=== PATIENT | female | born 1970 ===

== ENCOUNTER 2021-12-20 12:29 | Emergency (ER) | payer BC, OTHER ==
[~2021-12-20] VITALS: Ht 165.1 cm; Wt 104.3 kg
[2021-12-20 13:56] VITALS: BP 119/91
[2021-12-20] MEDS ORDERED: cefTRIAXone SOD 1,000 MG VL IM ONE (14:30)
[2021-12-20] MEDS ORDERED: KETOROLAC TROMETH 60MG/2ML VIAL IM ONE (14:30)
[2021-12-20] MEDS ORDERED: CEPH500T PO (14:31)
[2021-12-20] MEDS ORDERED: IBUP800T27 PO (14:31)
[2021-12-20] MEDS ORDERED: GABA300C PO (15:38)
== END 2021-12-20 16:58 | disposition home or self-care (01) ==
LOC: EDBD 12:29 → ER 12:29
DX: L03.115 Cellulitis of right lower limb (principal); E11.9 Type 2 diabetes mellitus without complications
CPT/HCPCS: 93971; 96372; 99284; J0696; J1885

== ENCOUNTER 2021-12-23 13:33 | Inpatient (IN) | payer BC ==
[~2021-12-23] VITALS: Ht 165.1 cm; Wt 145.8 kg
[~2021-12-23 13:33] MED LIST: CEPH500T PO; GABA300C PO; IBUP800T27 PO
[2021-12-23 16:04] LABS: Basophils # (auto) 0.1 10 ^3/uL (0-0.2); Hematocrit 35.3 % (36.0-46.0); Monocytes # (auto) 1.2 10 ^3/uL (0-1.3); Red Cell Distribution Width 14.7 % (11.8-14.3); White Blood Cell 15.5 10^3/uL (4.4-10.8)
[2021-12-23 16:05] LABS: Basophils % (auto) 0.5 % (0.0-2.0); Eosinophils # (auto) 0.2 10 ^3/uL (0-0.8); Hemoglobin 11.8 g/dL (12.2-16.2); Lymphocytes # (auto) 2.8 10 ^3/uL (0.4-5.4); Lymphocytes % (auto) 18.1 % (10.0-50.0); Mean Corpuscular Hemoglobin 27.7 pg (28.0-32.0); Mean Corpuscular Hgb Conc. 33.4 g/dL (32.0-36.0); Mean Corpuscular Volume 82.9 fL (80.0-100.0); Monocytes % (auto) 7.9 % (0.0-12.0); Neutrophils # (auto) 11.3 10 ^3/uL (1.6-8.6); Neutrophils % (auto) 72.5 % (37.0-80.0); Red Blood Cells 4.26 10^6/uL (4.0-5.20)
[2021-12-23 16:21] LABS: Albumin 2.6 g/dL (3.4-5.0); Calcium 8.8 mg/dL (8.5-10.1); Potassium 3.3 mmol/L (3.5-5.1)
[2021-12-23 16:29] LABS: BUN/Creatinine Ratio 11.7; CRP High Sensitivity 16.6 mg/dL (< 0.3); Total Protein 8.5 g/dL (6.4-8.2)
[2021-12-23 16:38] LABS: Bilirubin, Total 0.3 mg/dL (0.2-1.0)
[2021-12-23] MEDS ORDERED: POTASSIUM EFFERVESENT TAB 25 MEQ PO ONE (17:30)
[2021-12-23] MEDS ORDERED: ACETAMINOPHEN 325 MG TAB PO ONE (18:15)
[2021-12-23] MEDS ORDERED: PIPERACILLIN-TAZOB 3.375GM 100 ML IV ONE (18:15)
[2021-12-23] MEDS ORDERED: LACTATED RINGER'S 1,000 ML IV ONE (18:15)
[2021-12-23] MEDS ORDERED: VANCOMYCIN 1GM/250ML 250 ML IV ONE (18:15)
[2021-12-23] MEDS ORDERED: DEXTROSE (50%) 50ML SYRG IV PRN (22:45)
[2021-12-23] MEDS ORDERED: VANCOMYCIN PER PHARMACY 0 MG IV SCH (22:45)
[2021-12-23] MEDS ORDERED: DOCUSATE SOD 100 MG CAP PO PRN (22:45)
[2021-12-23] MEDS ORDERED: ONDANSETRON HCL 4 MG/2 ML VIAL IV PRN (22:45)
[2021-12-23] MEDS ORDERED: MORPHINE SULFATE 4 MG/ML SYR/VIAL IV PRN (22:45)
[2021-12-23] MEDS ORDERED: ACETAMINOPHEN 325 MG TAB PO PRN (22:45)
[2021-12-23] MEDS: SODIUM CHLORIDE 0.9% 1,000 ML IV SCH (23:00)
[2021-12-23] MEDS ORDERED: NITROGLYCERIN 0.4 MG SL TAB SL PRN (23:15)
[2021-12-23] MEDS ORDERED: MORPHINE SULFATE INJECTION 2 MG/ML SYRG IV PRN (23:15)
[2021-12-24] MEDS: HYDROcodone-ACET 5/325MG TAB PO PRN ×2 (01:45→21:40)
[2021-12-24] MEDS: PIPERACILLIN-TAZOB 3.375GM 100 ML IV SCH ×3 (06:00→22:30)
[2021-12-24] MEDS: ACCU-CHEK COMFORT CURVE STRIP VI SCH ×4 (06:45→22:06)
[2021-12-24] MEDS: InsuLIN REG 1unit/0.01ml Soln (100units/ml) SC SCH ×4 (06:45→22:12)
[2021-12-24 07:00] LABS: Basophils # (auto) 0.1 10 ^3/uL (0-0.2); Basophils % (auto) 0.6 % (0.0-2.0); Eosinophils # (auto) 0.3 10 ^3/uL (0-0.8); Eosinophils % (auto) 2.4 % (0.0-7.0); Hemoglobin 10.5 g/dL (12.2-16.2); Lymphocytes # (auto) 2.4 10 ^3/uL (0.4-5.4); Mean Corpuscular Hemoglobin 27.3 pg (28.0-32.0); Mean Corpuscular Hgb Conc. 32.9 g/dL (32.0-36.0); Mean Corpuscular Volume 83.2 fL (80.0-100.0); Monocytes # (auto) 1.3 10 ^3/uL (0-1.3); Monocytes % (auto) 10.9 % (0.0-12.0); Neutrophils # (auto) 7.6 10 ^3/uL (1.6-8.6); Neutrophils % (auto) 65.1 % (37.0-80.0); Red Blood Cells 3.85 10^6/uL (4.0-5.20); Red Cell Distribution Width 14.8 % (11.8-14.3); White Blood Cell 11.7 10^3/uL (4.4-10.8)
[2021-12-24 07:12] LABS: Potassium 3.5 mmol/L (3.5-5.1)
[2021-12-24 07:19] LABS: Albumin 2.2 g/dL (3.4-5.0); BUN/Creatinine Ratio 14.3; Bilirubin, Total 0.2 mg/dL (0.2-1.0); Calcium 8.3 mg/dL (8.5-10.1); Total Protein 7.3 g/dL (6.4-8.2)
[2021-12-24] MEDS: VANCOMYCIN 1GM/250ML 250 ML IV SCH ×2 (10:04→21:00)
[2021-12-24] MEDS: MULTIPLE VITAMIN TAB PO SCH (10:04)
[2021-12-24] MEDS: ZINC SULFATE 220mg CAP or TAB PO SCH (10:04)
[2021-12-24] MEDS: FAMOTIDINE (10MG/ML) 2ML VL IV SCH (10:04)
[2021-12-24] MEDS: ENOXAPARIN SOD 40 MG/0.4 ML SYRINGE SC SCH (10:05)
[2021-12-24] MEDS: ASCORBIC ACID 500 MG TAB PO SCH ×2 (10:05→22:12)
[2021-12-24 13:00] VITALS: BP 143/83
[2021-12-24] MEDS: SODIUM CHLORIDE 0.9% 1,000 ML IV SCH (15:17)
[2021-12-24 17:00] VITALS: BP 159/86
[2021-12-24 20:00] VITALS: BP 128/75
[2021-12-24 22:00] VITALS: BP 128/75
[2021-12-25 05:00] VITALS: BP 132/56
[2021-12-25] MEDS: PIPERACILLIN-TAZOB 3.375GM 100 ML IV SCH ×3 (06:36→21:57)
[2021-12-25] MEDS: ACCU-CHEK COMFORT CURVE STRIP VI SCH ×4 (06:38→21:58)
[2021-12-25] MEDS: InsuLIN REG 1unit/0.01ml Soln (100units/ml) SC SCH ×4 (06:38→21:58)
[2021-12-25] MEDS: SODIUM CHLORIDE 0.9% 1,000 ML IV SCH (08:05)
[2021-12-25 09:00] VITALS: BP 126/70
[2021-12-25] MEDS: VANCOMYCIN 1GM/250ML 250 ML IV SCH ×2 (09:00→21:56)
[2021-12-25] MEDS: FAMOTIDINE (10MG/ML) 2ML VL IV SCH (09:00)
[2021-12-25] MEDS: ASCORBIC ACID 500 MG TAB PO SCH ×2 (10:00→21:57)
[2021-12-25] MEDS: ENOXAPARIN SOD 40 MG/0.4 ML SYRINGE SC SCH (10:00)
[2021-12-25] MEDS: ZINC SULFATE 220mg CAP or TAB PO SCH (10:00)
[2021-12-25] MEDS: MULTIPLE VITAMIN TAB PO SCH (10:00)
[2021-12-25] MEDS ORDERED: CLOPIDOGREL BISULFATE 75 MG TAB PO ONE (11:30)
[2021-12-25 13:24] LABS: LDL Cholesterol 102 mg/dL (< 100); Triglycerides 81 mg/dL (< 150)
[2021-12-25 13:30] VITALS: BP 139/79
[2021-12-25 13:32] LABS: Cholesterol 137 mg/dL (< 200); HDL Cholesterol 22 mg/dL (40-59)
[2021-12-25 16:30] VITALS: BP 144/87
[2021-12-25 21:00] VITALS: BP 146/75
[2021-12-25] MEDS: ATORVASTATIN 20 MG TAB PO SCH (21:57)
[2021-12-25] MEDS: HYDROcodone-ACET 5/325MG TAB PO PRN (22:23)
[2021-12-26 05:00] VITALS: BP 143/83
[2021-12-26] MEDS: ACCU-CHEK COMFORT CURVE STRIP VI SCH ×4 (07:02→21:57)
[2021-12-26] MEDS: InsuLIN REG 1unit/0.01ml Soln (100units/ml) SC SCH ×4 (07:07→21:53)
[2021-12-26 09:00] VITALS: BP 121/62
[2021-12-26] MEDS: FAMOTIDINE (10MG/ML) 2ML VL IV SCH (10:21)
[2021-12-26] MEDS: MULTIPLE VITAMIN TAB PO SCH (10:22)
[2021-12-26] MEDS: ENOXAPARIN SOD 40 MG/0.4 ML SYRINGE SC SCH (10:22)
[2021-12-26] MEDS: CLOPIDOGREL BISULFATE 75 MG TAB PO SCH (10:22)
[2021-12-26] MEDS: ZINC SULFATE 220mg CAP or TAB PO SCH (10:46)
[2021-12-26] MEDS: ASCORBIC ACID 500 MG TAB PO SCH ×2 (10:57→21:52)
[2021-12-26] MEDS: VANCOMYCIN 1GM/250ML 250 ML IV SCH ×3 (12:09→21:52)
[2021-12-26 13:00] VITALS: BP 145/85
[2021-12-26] MEDS: PIPERACILLIN-TAZOB 3.375GM 100 ML IV SCH ×2 (15:04→21:52)
[2021-12-26 17:04] VITALS: BP 134/79
[2021-12-26] MEDS: ATORVASTATIN 20 MG TAB PO SCH (21:52)
[2021-12-26 22:00] VITALS: BP 125/66
[2021-12-27] VITALS (7 sets, daily range): BP systolic 115–150; BP diastolic 59–90
[2021-12-27 06:07] LABS: Hemoglobin 11.9 g/dL (12.2-16.2)
[2021-12-27 06:09] LABS: Basophils # (auto) 0 10 ^3/uL (0-0.2); Basophils % (auto) 0.4 % (0.0-2.0); Eosinophils # (auto) 0.2 10 ^3/uL (0-0.8); Eosinophils % (auto) 2.5 % (0.0-7.0); Hematocrit 34.8 % (36.0-46.0); Lymphocytes # (auto) 2.2 10 ^3/uL (0.4-5.4); Lymphocytes % (auto) 21.6 % (10.0-50.0); Mean Corpuscular Hemoglobin 28.1 pg (28.0-32.0); Mean Corpuscular Hgb Conc. 34.2 g/dL (32.0-36.0); Monocytes # (auto) 0.8 10 ^3/uL (0-1.3); Monocytes % (auto) 8.1 % (0.0-12.0); Neutrophils # (auto) 6.8 10 ^3/uL (1.6-8.6); Neutrophils % (auto) 67.4 % (37.0-80.0); Red Blood Cells 4.25 10^6/uL (4.0-5.20); White Blood Cell 10.1 10^3/uL (4.4-10.8)
[2021-12-27 06:23] LABS: INR 1.05 (0.9-1.15)
[2021-12-27 06:39] LABS: BUN/Creatinine Ratio 10.3; Calcium 8.9 mg/dL (8.5-10.1)
[2021-12-27] MEDS: ACCU-CHEK COMFORT CURVE STRIP VI SCH ×4 (06:57→22:20)
[2021-12-27] MEDS: PIPERACILLIN-TAZOB 3.375GM 100 ML IV SCH ×3 (06:57→22:19)
[2021-12-27] MEDS: InsuLIN REG 1unit/0.01ml Soln (100units/ml) SC SCH ×4 (06:59→22:29)
[2021-12-27] MEDS: CLOPIDOGREL BISULFATE 75 MG TAB PO SCH (08:55)
[2021-12-27] MEDS: ENOXAPARIN SOD 40 MG/0.4 ML SYRINGE SC SCH (08:55)
[2021-12-27] MEDS: ASCORBIC ACID 500 MG TAB PO SCH ×2 (09:04→22:20)
[2021-12-27] MEDS: MULTIPLE VITAMIN TAB PO SCH (09:04)
[2021-12-27] MEDS: FAMOTIDINE (10MG/ML) 2ML VL IV SCH (09:05)
[2021-12-27] MEDS: ZINC SULFATE 220mg CAP or TAB PO SCH (09:15)
[2021-12-27] MEDS ORDERED: ANGIOMAX 250 MG VIAL IV ONE (10:19)
[2021-12-27] MEDS ORDERED: MIDAZOLAM HCL 2MG/2ML 2ml VIAL (1mg/ml) ONE (10:19)
[2021-12-27] MEDS ORDERED: fentaNYL CITRATE 100 MCG/2 ML VL ONE (10:19)
[2021-12-27] MEDS ORDERED: SODIUM CHL 0.9% 0 ML ONE (10:20)
[2021-12-27] MEDS ORDERED: LIDOCAINE 2%HCL (LOCAL ANESTH.) INJ 20ML MDV ONE (10:20)
[2021-12-27] MEDS: VANCOMYCIN 1GM/250ML 250 ML IV SCH (13:48)
[2021-12-27] MEDS: SODIUM CHLOR 0.9% PF (SALINE LOCK) 10ML VIAL/SYR IV SCH ×2 (15:09→22:30)
[2021-12-27] MEDS: SODIUM CHLORIDE 0.9% 1,000 ML IV SCH (17:18)
[2021-12-27] MEDS: ATORVASTATIN 20 MG TAB PO SCH (22:19)
[2021-12-28] MEDS: SODIUM CHLORIDE 0.9% 1,000 ML IV SCH ×2 (02:45→19:25)
[2021-12-28 05:00] VITALS: BP 123/62
[2021-12-28] MEDS: VANCOMYCIN 1GM/250ML 250 ML IV SCH ×2 (05:07→17:06)
[2021-12-28] MEDS: SODIUM CHLOR 0.9% PF (SALINE LOCK) 10ML VIAL/SYR IV SCH ×3 (05:07→22:00)
[2021-12-28 05:56] LABS: Potassium 4.4 mmol/L (3.5-5.1)
[2021-12-28 06:03] LABS: BUN/Creatinine Ratio 11.2; Calcium 8.9 mg/dL (8.5-10.1)
[2021-12-28] MEDS: PIPERACILLIN-TAZOB 3.375GM 100 ML IV SCH ×3 (06:33→22:00)
[2021-12-28] MEDS: InsuLIN REG 1unit/0.01ml Soln (100units/ml) SC SCH ×4 (06:39→22:20)
[2021-12-28] MEDS: ACCU-CHEK COMFORT CURVE STRIP VI SCH ×4 (06:40→22:12)
[2021-12-28] MEDS: CLOPIDOGREL BISULFATE 75 MG TAB PO SCH (09:13)
[2021-12-28] MEDS: ZINC SULFATE 220mg CAP or TAB PO SCH (09:13)
[2021-12-28] MEDS: MULTIPLE VITAMIN TAB PO SCH (09:13)
[2021-12-28] MEDS: ASCORBIC ACID 500 MG TAB PO SCH ×2 (09:14→21:59)
[2021-12-28] MEDS: ENOXAPARIN SOD 40 MG/0.4 ML SYRINGE SC SCH (09:15)
[2021-12-28] MEDS: FAMOTIDINE (10MG/ML) 2ML VL IV SCH (09:20)
[2021-12-28 09:23] VITALS: BP 107/60
[2021-12-28 12:50] VITALS: BP 122/77
[2021-12-28] MEDS: HYDROcodone-ACET 5/325MG TAB PO PRN (15:01)
[2021-12-28 17:20] VITALS: BP 116/73
[2021-12-28] MEDS: ATORVASTATIN 20 MG TAB PO SCH (21:59)
[2021-12-29 00:27] VITALS: BP 124/73
[2021-12-29] MEDS: VANCOMYCIN 1GM/250ML 250 ML IV SCH ×2 (05:45→17:45)
[2021-12-29] MEDS: SODIUM CHLOR 0.9% PF (SALINE LOCK) 10ML VIAL/SYR IV SCH ×4 (05:46→21:47)
[2021-12-29] MEDS: ACCU-CHEK COMFORT CURVE STRIP VI SCH ×4 (06:38→21:48)
[2021-12-29] MEDS: InsuLIN REG 1unit/0.01ml Soln (100units/ml) SC SCH ×4 (06:40→21:55)
[2021-12-29 09:00] VITALS: BP 138/78
[2021-12-29] MEDS ORDERED: NEOMYCIN-BACITRACIN-POLYM 15GM TOP OINT TOP ONE (09:26)
[2021-12-29] MEDS ORDERED: ceFAZolin 1GM VL ONE (09:26)
[2021-12-29] MEDS ORDERED: ROPIVACAINE 0.5% (5MG/ML) 20ML AMPULE IJ ONE (09:26)
[2021-12-29] MEDS: CLOPIDOGREL BISULFATE 75 MG TAB PO SCH (10:00)
[2021-12-29] MEDS: ENOXAPARIN SOD 40 MG/0.4 ML SYRINGE SC SCH (10:00)
[2021-12-29] MEDS ORDERED: MEPERIDINE HCL (25 MG/ML) 1ML VIAL ONE (10:33)
[2021-12-29] MEDS ORDERED: fentaNYL CITRATE 100 MCG/2 ML VL ONE (10:34)
[2021-12-29] MEDS ORDERED: MIDAZOLAM HCL 2MG/2ML 2ml VIAL (1mg/ml) ONE (10:34)
[2021-12-29] MEDS ORDERED: DexAMETHasone SOD PHOS 10MG/1ML VIAL INJ ONE (10:44)
[2021-12-29] MEDS ORDERED: PROPOFOL 10 MG/ML 20 ML IV ONE (10:44)
[2021-12-29] MEDS: ZINC SULFATE 220mg CAP or TAB PO SCH (10:46)
[2021-12-29] MEDS: FAMOTIDINE (10MG/ML) 2ML VL IV SCH (10:46)
[2021-12-29] MEDS: FLORASTOR (S. BOULARDII) 250 MG CAP PO SCH (10:47)
[2021-12-29] MEDS: MULTIPLE VITAMIN TAB PO SCH (10:48)
[2021-12-29] MEDS: ASCORBIC ACID 500 MG TAB PO SCH ×2 (10:48→21:48)
[2021-12-29] MEDS ORDERED: ONDANSETRON HCL 4 MG/2 ML VIAL IV PRN (11:00)
[2021-12-29] MEDS ORDERED: MIDAZOLAM HCL 2MG/2ML 2ml VIAL (1mg/ml) IV PRN (11:00)
[2021-12-29] MEDS ORDERED: MORPHINE SULFATE 4 MG/ML SYR/VIAL IV PRN (11:00)
[2021-12-29] MEDS ORDERED: HYDROmorphone HCL 2 MG/ML VL IV PRN (11:00)
[2021-12-29] MEDS ORDERED: LABETALOL HCL 5 MG/ML 4ML SYRINGE IV PRN (11:00)
[2021-12-29] MEDS ORDERED: ePHEDrine SULFATE 50 MG/ML AMP IV PRN (11:00)
[2021-12-29] MEDS ORDERED: ACCU-CHEK COMFORT CURVE STRIP VI ONE (11:00)
[2021-12-29] MEDS ORDERED: MORPHINE SULFATE INJECTION 2 MG/ML SYRG IV PRN (11:30)
[2021-12-29] MEDS: SODIUM CHLORIDE 0.9% 1,000 ML IV SCH (12:05)
[2021-12-29 13:00] VITALS: BP 121/64
[2021-12-29] MEDS: PIPERACILLIN-TAZOB 3.375GM 100 ML IV SCH ×2 (15:14→23:13)
[2021-12-29] MEDS ORDERED: LIDOCAINE 1% (LOCAL ANESTH.) PF 5ml SDV ID ONE (16:30)
[2021-12-29] MEDS: HYDROcodone-ACET 5/325MG TAB PO PRN (20:23)
[2021-12-29] MEDS: ATORVASTATIN 20 MG TAB PO SCH (21:48)
[2021-12-29 22:29] VITALS: BP 136/79
[2021-12-30] MEDS: SODIUM CHLORIDE 0.9% 1,000 ML IV SCH ×2 (04:45→21:27)
[2021-12-30 05:11] VITALS: BP 132/76
[2021-12-30] MEDS: VANCOMYCIN 1GM/250ML 250 ML IV SCH ×2 (05:15→17:27)
[2021-12-30] MEDS: SODIUM CHLOR 0.9% PF (SALINE LOCK) 10ML VIAL/SYR IV SCH ×5 (05:24→21:27)
[2021-12-30 06:18] LABS: BUN/Creatinine Ratio 14.6; Calcium 8.8 mg/dL (8.5-10.1)
[2021-12-30] MEDS: InsuLIN REG 1unit/0.01ml Soln (100units/ml) SC SCH ×4 (06:38→21:29)
[2021-12-30] MEDS: ACCU-CHEK COMFORT CURVE STRIP VI SCH ×4 (06:38→21:34)
[2021-12-30] MEDS: PIPERACILLIN-TAZOB 3.375GM 100 ML IV SCH ×3 (07:09→21:36)
[2021-12-30 09:00] VITALS: BP_SYST 112; BP_SYST 121; BP_DIAS 61; BP_DIAS 68
[2021-12-30] MEDS: ASCORBIC ACID 500 MG TAB PO SCH ×2 (10:30→21:37)
[2021-12-30] MEDS: ENOXAPARIN SOD 40 MG/0.4 ML SYRINGE SC SCH (10:30)
[2021-12-30] MEDS: ZINC SULFATE 220mg CAP or TAB PO SCH (10:30)
[2021-12-30] MEDS: FAMOTIDINE (10MG/ML) 2ML VL IV SCH (10:30)
[2021-12-30] MEDS: FLORASTOR (S. BOULARDII) 250 MG CAP PO SCH (10:30)
[2021-12-30] MEDS: MULTIPLE VITAMIN TAB PO SCH (10:30)
[2021-12-30] MEDS: CLOPIDOGREL BISULFATE 75 MG TAB PO SCH (10:30)
[2021-12-30] MEDS: HYDROcodone-ACET 5/325MG TAB PO PRN (11:06)
[2021-12-30 13:00] VITALS: BP 110/61
[2021-12-30 17:00] VITALS: BP 126/73
[2021-12-30] MEDS: ATORVASTATIN 20 MG TAB PO SCH (21:37)
[2021-12-30 22:00] VITALS: BP 131/77
[2021-12-31] MEDS: VANCOMYCIN 1GM/250ML 250 ML IV SCH ×2 (04:26→17:10)
[2021-12-31 04:40] VITALS: BP 129/73
[2021-12-31] MEDS: SODIUM CHLOR 0.9% PF (SALINE LOCK) 10ML VIAL/SYR IV SCH ×5 (06:00→21:43)
[2021-12-31] MEDS: ACCU-CHEK COMFORT CURVE STRIP VI SCH ×4 (07:45→21:44)
[2021-12-31] MEDS: InsuLIN REG 1unit/0.01ml Soln (100units/ml) SC SCH ×4 (08:00→21:39)
[2021-12-31 09:00] VITALS: BP 113/60
[2021-12-31] MEDS: ASCORBIC ACID 500 MG TAB PO SCH ×2 (10:33→21:43)
[2021-12-31] MEDS: CLOPIDOGREL BISULFATE 75 MG TAB PO SCH (10:33)
[2021-12-31] MEDS: FLORASTOR (S. BOULARDII) 250 MG CAP PO SCH (10:33)
[2021-12-31] MEDS: ZINC SULFATE 220mg CAP or TAB PO SCH (10:34)
[2021-12-31] MEDS: FAMOTIDINE (10MG/ML) 2ML VL IV SCH (10:34)
[2021-12-31] MEDS: ENOXAPARIN SOD 40 MG/0.4 ML SYRINGE SC SCH (10:34)
[2021-12-31] MEDS: MULTIPLE VITAMIN TAB PO SCH (10:34)
[2021-12-31 13:00] VITALS: BP 115/76
[2021-12-31] MEDS: SODIUM CHLORIDE 0.9% 1,000 ML IV SCH (14:05)
[2021-12-31] MEDS: HYDROcodone-ACET 5/325MG TAB PO PRN (14:14)
[2021-12-31] MEDS: PIPERACILLIN-TAZOB 3.375GM 100 ML IV SCH ×2 (14:50→21:43)
[2021-12-31] MEDS: ATORVASTATIN 20 MG TAB PO SCH (21:43)
[2021-12-31 22:00] VITALS: BP 134/71
[2022-01-01 04:50] VITALS: BP 126/68
[2022-01-01] MEDS: VANCOMYCIN 1GM/250ML 250 ML IV SCH ×2 (05:00→17:00)
[2022-01-01 06:01] LABS: Basophils # (auto) 0.1 10 ^3/uL (0-0.2); Basophils % (auto) 0.5 % (0.0-2.0); Eosinophils # (auto) 0.2 10 ^3/uL (0-0.8); Eosinophils % (auto) 2.1 % (0.0-7.0); Hematocrit 33.1 % (36.0-46.0); Lymphocytes # (auto) 2.6 10 ^3/uL (0.4-5.4); Lymphocytes % (auto) 23.1 % (10.0-50.0); Mean Corpuscular Hemoglobin 27.2 pg (28.0-32.0); Mean Corpuscular Hgb Conc. 33.1 g/dL (32.0-36.0); Monocytes # (auto) 0.8 10 ^3/uL (0-1.3); Monocytes % (auto) 7.6 % (0.0-12.0); Neutrophils # (auto) 7.5 10 ^3/uL (1.6-8.6); Neutrophils % (auto) 66.7 % (37.0-80.0); Nucleated Red Blood Cells % 0.2 %; Red Blood Cells 4.04 10^6/uL (4.0-5.20); Red Cell Distribution Width 14.7 % (11.8-14.3); White Blood Cell 11.1 10^3/uL (4.4-10.8)
[2022-01-01] MEDS: InsuLIN REG 1unit/0.01ml Soln (100units/ml) SC SCH ×2 (06:31→12:00)
[2022-01-01 06:32] LABS: BUN/Creatinine Ratio 14.4; Potassium 3.8 mmol/L (3.5-5.1)
[2022-01-01] MEDS: PIPERACILLIN-TAZOB 3.375GM 100 ML IV SCH ×2 (06:34→14:00)
[2022-01-01] MEDS: SODIUM CHLOR 0.9% PF (SALINE LOCK) 10ML VIAL/SYR IV SCH ×3 (06:38→13:31)
[2022-01-01] MEDS: SODIUM CHLORIDE 0.9% 1,000 ML IV SCH (06:45)
[2022-01-01] MEDS: ACCU-CHEK COMFORT CURVE STRIP VI SCH ×2 (07:00→11:30)
[2022-01-01] MEDS ORDERED: CEPH500T PO (09:45)
[2022-01-01] MEDS ORDERED: HYDR-4902 PO (09:45)
[2022-01-01] MEDS: MULTIPLE VITAMIN TAB PO SCH (10:14)
[2022-01-01] MEDS: FAMOTIDINE (10MG/ML) 2ML VL IV SCH (10:14)
[2022-01-01] MEDS: CLOPIDOGREL BISULFATE 75 MG TAB PO SCH (10:14)
[2022-01-01] MEDS: ZINC SULFATE 220mg CAP or TAB PO SCH (10:14)
[2022-01-01] MEDS: FLORASTOR (S. BOULARDII) 250 MG CAP PO SCH (10:14)
[2022-01-01] MEDS: ASCORBIC ACID 500 MG TAB PO SCH (10:15)
[2022-01-01] MEDS: ENOXAPARIN SOD 40 MG/0.4 ML SYRINGE SC SCH (10:15)
[2022-01-01 13:38] VITALS: BP 115/78
== END 2022-01-01 17:15 | disposition home health service (06) | DRG 854 ==
LOC: ER 13:33 → OVERFLOW 23:14 → CENTRAL 12-24 11:14
PROVIDERS: ADMIT Nurse Practitioner Family; ATTEND Family Medicine
PROC: B41GYZZ Fluoroscopy of Left Lower Extremity Arteries using Other Contrast (ICD-10-PCS; 2021-12-27)
PROC: B41FYZZ Fluoroscopy of Right Lower Extremity Arteries using Other Contrast (ICD-10-PCS; 2021-12-27)
PROC: 0Y6V0Z0 Detachment at Right 4th Toe, Complete, Open Approach (ICD-10-PCS; 2021-12-29)
PROC: 02HV33Z Insertion of Infusion Device into Superior Vena Cava, Percutaneous Approach (ICD-10-PCS; 2021-12-29)
PROC: B548ZZA Ultrasonography of Superior Vena Cava, Guidance (ICD-10-PCS; 2021-12-29)
PROC: 0Y6X0Z0 Detachment at Right 5th Toe, Complete, Open Approach (ICD-10-PCS; principal; 2021-12-29 10:34)
PROC: 0QBN0ZZ Excision of Right Metatarsal, Open Approach (ICD-10-PCS; 2021-12-29 10:34)
DX: A41.01 Sepsis due to Methicillin susceptible Staphylococcus aureus (principal); L03.115 Cellulitis of right lower limb; E44.0 Moderate protein-calorie malnutrition; M86.8X7 Other osteomyelitis, ankle and foot; Z68.43 Body mass index [BMI] 50.0-59.9, adult; E87.6 Hypokalemia; E11.649 Type 2 diabetes mellitus with hypoglycemia without coma; E11.622 Type 2 diabetes mellitus with other skin ulcer; E11.51 Type 2 diabetes mellitus with diabetic peripheral angiopathy without gangrene; E66.01 Morbid (severe) obesity due to excess calories; E11.628 Type 2 diabetes mellitus with other skin complications; E11.69 Type 2 diabetes mellitus with other specified complication; E11.21 Type 2 diabetes mellitus with diabetic nephropathy; E11.621 Type 2 diabetes mellitus with foot ulcer; E11.40 Type 2 diabetes mellitus with diabetic neuropathy, unspecified; L97.519 Non-pressure chronic ulcer of other part of right foot with unspecified severity; Z20.822 Contact with and (suspected) exposure to COVID-19; Z86.718 Personal history of other venous thrombosis and embolism; Z87.891 Personal history of nicotine dependence; Z89.422 Acquired absence of other left toe(s); Z79.4 Long term (current) use of insulin
CPT/HCPCS: 36415; 36569; 71045; 73630; 73718; 80048; 80053; 80061; 80202; 82550; 82565; 82962; 83036; 84443; 85025; 85610; 85652; 85730; 86141; 87040; 87070; 87075; 87077; 87186; 87205; 87426; 93926; 93971; 96365; 96366; 96367; 99152; G0378; J0690; J1100; J1815; J2250; J2543; J2704; J3490

== ENCOUNTER 2022-01-23 18:44 | Inpatient (IN) | payer BC ==
[~2022-01-23] VITALS: Ht 165.1 cm; Wt 153.1 kg
[~2022-01-23 18:44] MED LIST changes: +HYDR-4902 PO
[2022-01-23] MEDS ORDERED: VANCOMYCIN PER PHARMACY 0 MG IV SCH ×2 (20:15→21:15)
[2022-01-23] MEDS ORDERED: PIPERACILLIN-TAZOB 3.375GM 100 ML IV ONE (20:15)
[2022-01-23] MEDS: VANCOMYCIN 1GM/250ML 250 ML IV SCH (21:00)
[2022-01-23] MEDS ORDERED: ONDANSETRON HCL 4 MG/2 ML VIAL IV PRN (21:15)
[2022-01-23] MEDS ORDERED: MORPHINE SULFATE 4 MG/ML SYR/VIAL IV PRN (21:15)
[2022-01-23] MEDS ORDERED: ACETAMINOPHEN 325 MG TAB PO PRN (21:15)
[2022-01-23] MEDS ORDERED: DOCUSATE SOD 100 MG CAP PO PRN (21:15)
[2022-01-23] MEDS ORDERED: DEXTROSE (50%) 50ML SYRG IV PRN (21:15)
[2022-01-23 21:35] LABS: Calcium 8.5 mg/dL (8.5-10.1); Potassium 3.5 mmol/L (3.5-5.1)
[2022-01-23 21:38] LABS: Bilirubin, Total 0.3 mg/dL (0.2-1.0); Total Protein 8.5 g/dL (6.4-8.2)
[2022-01-23 21:44] LABS: Basophils # (auto) 0.1 10 ^3/uL (0-0.2); Basophils % (auto) 0.6 % (0.0-2.0); Eosinophils # (auto) 0.2 10 ^3/uL (0-0.8); Eosinophils % (auto) 2.4 % (0.0-7.0); Hematocrit 35.8 % (36.0-46.0); Hemoglobin 11.9 g/dL (12.2-16.2); Lymphocytes # (auto) 3.1 10 ^3/uL (0.4-5.4); Lymphocytes % (auto) 33.8 % (10.0-50.0); Mean Corpuscular Hemoglobin 27.7 pg (28.0-32.0); Mean Corpuscular Hgb Conc. 33.3 g/dL (32.0-36.0); Monocytes # (auto) 0.6 10 ^3/uL (0-1.3); Monocytes % (auto) 5.9 % (0.0-12.0); Neutrophils # (auto) 5.3 10 ^3/uL (1.6-8.6); Neutrophils % (auto) 57.3 % (37.0-80.0); Red Blood Cells 4.31 10^6/uL (4.0-5.20); Red Cell Distribution Width 15.2 % (11.8-14.3); White Blood Cell 9.3 10^3/uL (4.4-10.8)
[2022-01-24] VITALS (7 sets, daily range): BP systolic 99–149; BP diastolic 53–92
[2022-01-24] MEDS ORDERED: VANCOMYCIN 1GM/250ML 250 ML IV ONE
[2022-01-24] MEDS ORDERED: PIPERACILLIN-TAZOB 3.375GM 100 ML IV SCH
[2022-01-24] MEDS: SODIUM CHLORIDE 0.9% 1,000 ML IV SCH ×4 (00:31→23:46)
[2022-01-24] MEDS: ACCU-CHEK COMFORT CURVE STRIP VI SCH ×5 (00:31→23:13)
[2022-01-24] MEDS: HYDROcodone-ACET 5/325MG TAB PO PRN (00:33)
[2022-01-24] MEDS: PIPERACILLIN-TAZOB 3.375GM 100 ML IV SCH ×4 (05:31→23:46)
[2022-01-24] MEDS: InsuLIN REG 1unit/0.01ml Soln (100units/ml) SC SCH ×5 (05:32→23:13)
[2022-01-24 05:38] LABS: Basophils # (auto) 0.1 10 ^3/uL (0-0.2); Basophils % (auto) 0.7 % (0.0-2.0); Eosinophils # (auto) 0.2 10 ^3/uL (0-0.8); Eosinophils % (auto) 2.9 % (0.0-7.0); Hematocrit 32.1 % (36.0-46.0); Hemoglobin 10.8 g/dL (12.2-16.2); Lymphocytes # (auto) 2.3 10 ^3/uL (0.4-5.4); Lymphocytes % (auto) 30.8 % (10.0-50.0); Mean Corpuscular Hemoglobin 27.9 pg (28.0-32.0); Mean Corpuscular Hgb Conc. 33.7 g/dL (32.0-36.0); Mean Corpuscular Volume 82.7 fL (80.0-100.0); Monocytes # (auto) 0.6 10 ^3/uL (0-1.3); Monocytes % (auto) 7.5 % (0.0-12.0); Neutrophils # (auto) 4.4 10 ^3/uL (1.6-8.6); Neutrophils % (auto) 58.1 % (37.0-80.0); Nucleated Red Blood Cells % 0.1 %; Red Blood Cells 3.88 10^6/uL (4.0-5.20); Red Cell Distribution Width 15.7 % (11.8-14.3); White Blood Cell 7.6 10^3/uL (4.4-10.8)
[2022-01-24 05:53] LABS: Albumin 2.6 g/dL (3.4-5.0); Calcium 8.1 mg/dL (8.5-10.1); Potassium 3.4 mmol/L (3.5-5.1)
[2022-01-24 05:58] LABS: BUN/Creatinine Ratio 17.3; Bilirubin, Total 0.4 mg/dL (0.2-1.0); Total Protein 7.2 g/dL (6.4-8.2)
[2022-01-24] MEDS: ENOXAPARIN SOD 40 MG/0.4 ML SYRINGE SC SCH (07:59)
[2022-01-24] MEDS ORDERED: fentaNYL CITRATE 100 MCG/2 ML VL ONE (09:43)
[2022-01-24] MEDS ORDERED: SODIUM CHLORIDE LOCK 10 ML ONE (09:43)
[2022-01-24] MEDS ORDERED: MIDAZOLAM HCL 2MG/2ML 2ml VIAL (1mg/ml) ONE (09:43)
[2022-01-24] MEDS ORDERED: ONDANSETRON HCL 4 MG/2 ML VIAL ONE (09:43)
[2022-01-24] MEDS ORDERED: PROPOFOL 10 MG/ML 20 ML IV ONE (09:43)
[2022-01-24] MEDS: VANCOMYCIN 1GM/250ML 250 ML IV SCH ×2 (10:03→21:18)
[2022-01-24 10:04] LABS: BUN/Creatinine Ratio 17.8; Calcium 8.1 mg/dL (8.5-10.1); Potassium 3.9 mmol/L (3.5-5.1)
[2022-01-24] MEDS ORDERED: ceFAZolin 1GM VL ONE (10:06)
[2022-01-24] MEDS ORDERED: ROPIVACAINE 0.5% (5MG/ML) 20ML AMPULE IJ ONE (10:06)
[2022-01-24 10:28] LABS: INR 1.01 (0.9-1.15)
[2022-01-24] MEDS ORDERED: METOCLOPRAMIDE HCL 5MG/ml INJ 2ml VIAL IV PRN (10:30)
[2022-01-24] MEDS ORDERED: MORPHINE SULFATE 4 MG/ML SYR/VIAL IV PRN (10:30)
[2022-01-24] MEDS ORDERED: HYDROmorphone HCL 2 MG/ML VL IV PRN (10:30)
[2022-01-24] MEDS ORDERED: ACCU-CHEK COMFORT CURVE STRIP VI ONE (10:30)
[2022-01-25 05:00] VITALS: BP 138/71
[2022-01-25] MEDS: ACCU-CHEK COMFORT CURVE STRIP VI SCH ×3 (05:49→17:50)
[2022-01-25] MEDS: InsuLIN REG 1unit/0.01ml Soln (100units/ml) SC SCH ×3 (05:51→17:51)
[2022-01-25] MEDS: PIPERACILLIN-TAZOB 3.375GM 100 ML IV SCH ×3 (05:52→17:50)
[2022-01-25] MEDS: SODIUM CHLORIDE 0.9% 1,000 ML IV SCH ×2 (05:57→14:55)
[2022-01-25 08:00] VITALS: BP 131/88
[2022-01-25 09:02] LABS: Basophils # (auto) 0 10 ^3/uL (0-0.2); Basophils % (auto) 0.2 % (0.0-2.0); Eosinophils # (auto) 0 10 ^3/uL (0-0.8); Hematocrit 34.8 % (36.0-46.0); Hemoglobin 11.8 g/dL (12.2-16.2); Lymphocytes # (auto) 0.8 10 ^3/uL (0.4-5.4); Lymphocytes % (auto) 10.2 % (10.0-50.0); Mean Corpuscular Hemoglobin 27.9 pg (28.0-32.0); Mean Corpuscular Hgb Conc. 33.9 g/dL (32.0-36.0); Mean Corpuscular Volume 82.4 fL (80.0-100.0); Monocytes # (auto) 0.4 10 ^3/uL (0-1.3); Monocytes % (auto) 4.5 % (0.0-12.0); Neutrophils # (auto) 6.9 10 ^3/uL (1.6-8.6); Neutrophils % (auto) 85.1 % (37.0-80.0); Nucleated Red Blood Cells % 0.1 %; Red Blood Cells 4.22 10^6/uL (4.0-5.20); Red Cell Distribution Width 15.5 % (11.8-14.3); White Blood Cell 8.1 10^3/uL (4.4-10.8)
[2022-01-25 09:14] LABS: Calcium 8.7 mg/dL (8.5-10.1); Potassium 3.7 mmol/L (3.5-5.1)
[2022-01-25 09:17] LABS: BUN/Creatinine Ratio 12.1
[2022-01-25] MEDS: VANCOMYCIN 1GM/250ML 250 ML IV SCH ×2 (10:04→21:09)
[2022-01-25] MEDS: ENOXAPARIN SOD 40 MG/0.4 ML SYRINGE SC SCH (10:04)
[2022-01-25] MEDS ORDERED: IBUP800T27 PO (11:22)
[2022-01-25] MEDS ORDERED: DOXY-286 PO (11:22)
[2022-01-25 16:00] VITALS: BP 146/77
[2022-01-25 20:00] VITALS: BP 140/80
[2022-01-25 22:00] VITALS: BP 179/99
[2022-01-25] MEDS: HYDROcodone-ACET 5/325MG TAB PO PRN (23:28)
[2022-01-26] MEDS: PIPERACILLIN-TAZOB 3.375GM 100 ML IV SCH ×3 (00:26→12:00)
[2022-01-26] MEDS: ACCU-CHEK COMFORT CURVE STRIP VI SCH ×3 (00:28→12:22)
[2022-01-26] MEDS: SODIUM CHLORIDE 0.9% 1,000 ML IV SCH ×2 (00:30→07:35)
[2022-01-26] MEDS: InsuLIN REG 1unit/0.01ml Soln (100units/ml) SC SCH ×3 (00:33→12:24)
[2022-01-26 05:00] VITALS: BP 145/89
[2022-01-26 08:00] VITALS: BP 135/69
[2022-01-26] MEDS: ENOXAPARIN SOD 40 MG/0.4 ML SYRINGE SC SCH (09:25)
[2022-01-26] MEDS: VANCOMYCIN 1GM/250ML 250 ML IV SCH (09:25)
== END 2022-01-26 17:00 | disposition home health service (06) | DRG 464 ==
LOC: ER 18:45 → OVERFLOW 21:08 → CENTRAL 23:04
PROVIDERS: ADMIT Internal Medicine; ATTEND Hospitalist
PROC: 0JBQ0ZZ Excision of Right Foot Subcutaneous Tissue and Fascia, Open Approach (ICD-10-PCS; principal; 2022-01-24 10:40)
DX: T87.81 Dehiscence of amputation stump (principal); T81.30XA Disruption of wound, unspecified, initial encounter; L03.115 Cellulitis of right lower limb; T81.40XA Infection following a procedure, unspecified, initial encounter; Z20.822 Contact with and (suspected) exposure to COVID-19; E11.621 Type 2 diabetes mellitus with foot ulcer; E11.628 Type 2 diabetes mellitus with other skin complications; E11.69 Type 2 diabetes mellitus with other specified complication; F12.90 Cannabis use, unspecified, uncomplicated; E66.9 Obesity, unspecified; Y83.8 Other surgical procedures as the cause of abnormal reaction of the patient, or of later complication, without mention of misadventure at the time of the procedure; L97.519 Non-pressure chronic ulcer of other part of right foot with unspecified severity; F32.A Depression, unspecified; Z80.1 Family history of malignant neoplasm of trachea, bronchus and lung; Z83.3 Family history of diabetes mellitus
CPT/HCPCS: 36415; 73630; 80048; 80053; 80202; 82962; 83036; 84702; 85025; 85610; 85652; 85730; 87040; 87070; 87075; 87205; 87426; 96365; 96366; G0378; J0690; J1815; J2250; J2405; J2543; J2704

== ENCOUNTER 2022-02-14 03:27 | Inpatient (IN) | payer BC ==
[~2022-02-14] VITALS: Ht 165.1 cm; Wt 152.0 kg
[~2022-02-14 03:27] MED LIST changes: -CEPH500T PO; +DOXY-286 PO
[2022-02-14 04:07] LABS: Basophils # (auto) 0.1 10 ^3/uL (0-0.2); Basophils % (auto) 0.8 % (0.0-2.0); Eosinophils # (auto) 0.2 10 ^3/uL (0-0.8); Eosinophils % (auto) 3.4 % (0.0-7.0); Hematocrit 36.2 % (36.0-46.0); Hemoglobin 12.1 g/dL (12.2-16.2); Lymphocytes % (auto) 45.2 % (10.0-50.0); Mean Corpuscular Hemoglobin 27.6 pg (28.0-32.0); Mean Corpuscular Hgb Conc. 33.4 g/dL (32.0-36.0); Mean Corpuscular Volume 82.6 fL (80.0-100.0); Monocytes # (auto) 0.4 10 ^3/uL (0-1.3); Neutrophils % (auto) 44.6 % (37.0-80.0); Nucleated Red Blood Cells % 0.2 %; Red Blood Cells 4.39 10^6/uL (4.0-5.20); Red Cell Distribution Width 15.9 % (11.8-14.3); White Blood Cell 6.7 10^3/uL (4.4-10.8)
[2022-02-14 04:15] LABS: Albumin 2.9 g/dL (3.4-5.0); BUN/Creatinine Ratio 26.7; Calcium 8.5 mg/dL (8.5-10.1); Potassium 3.6 mmol/L (3.5-5.1)
[2022-02-14 04:18] LABS: Bilirubin, Total 0.2 mg/dL (0.2-1.0); Total Protein 7.8 g/dL (6.4-8.2)
[2022-02-14 04:24] LABS: INR 0.94 (0.9-1.15)
[2022-02-14] MEDS ORDERED: SODIUM CHLORIDE 0.9% 1,000 ML IV ONE (08:00)
[2022-02-14] MEDS ORDERED: cefTRIAXone 1GM/50ML D5W 50 ML IV ONE (08:00)
[2022-02-14] MEDS ORDERED: ceFAZolin 1GM/50ML 100 ML IV ONE (09:26)
[2022-02-14] MEDS ORDERED: ceFAZolin 1GM/50ML 50 ML IV ONE (09:42)
[2022-02-14 09:50] LABS: Urine Bacteria NONE SEEN /hpf (None Seen); Urine Blood TRACE /uL (Negative); Urine Mucus FEW (None Seen); Urine Specific Gravity 1.023 (1.001-1.035); Urine WBC <1 /hpf (0 - 5)
[2022-02-14] MEDS ORDERED: ceFAZolin 1GM VL ONE (09:54)
[2022-02-14] MEDS ORDERED: ROPIVACAINE 0.5% (5MG/ML) 20ML AMPULE IJ ONE (09:54)
[2022-02-14] MEDS ORDERED: LABETALOL HCL 5 MG/ML 4ML SYRINGE IV PRN (10:30)
[2022-02-14] MEDS ORDERED: ePHEDrine SULFATE 50 MG/ML AMP IV PRN (10:30)
[2022-02-14] MEDS ORDERED: MIDAZOLAM HCL 2MG/2ML 2ml VIAL (1mg/ml) IV PRN (10:30)
[2022-02-14] MEDS ORDERED: ONDANSETRON HCL 4 MG/2 ML VIAL IV PRN ×2 (10:30→13:00)
[2022-02-14] MEDS ORDERED: MORPHINE SULFATE 4 MG/ML SYR/VIAL IV PRN (10:30)
[2022-02-14] MEDS ORDERED: METOCLOPRAMIDE HCL 5MG/ml INJ 2ml VIAL IV PRN (10:30)
[2022-02-14] MEDS ORDERED: ACCU-CHEK COMFORT CURVE STRIP VI ONE (10:30)
[2022-02-14] MEDS ORDERED: MEPERIDINE HCL (25 MG/ML) 1ML VIAL ONE (10:35)
[2022-02-14] MEDS ORDERED: fentaNYL CITRATE 100 MCG/2 ML VL ONE ×2 (10:35→13:12)
[2022-02-14] MEDS ORDERED: DexAMETHasone SOD PHOS 10MG/1ML VIAL INJ ONE ×2 (10:36→13:30)
[2022-02-14] MEDS ORDERED: MIDAZOLAM HCL 2MG/2ML 2ml VIAL (1mg/ml) ONE ×2 (10:36→13:12)
[2022-02-14] MEDS ORDERED: PROPOFOL 10 MG/ML 20 ML IV ONE ×2 (10:36→13:30)
[2022-02-14] MEDS ORDERED: NITROGLYCERIN 0.4 MG SL TAB SL PRN (12:30)
[2022-02-14] MEDS ORDERED: ACETAMINOPHEN 325 MG TAB PO PRN (13:00)
[2022-02-14] MEDS ORDERED: HYDROcodone-ACET 5/325MG TAB PO PRN (13:00)
[2022-02-14 14:44] LABS: Cholesterol 155 mg/dL (< 200); HDL Cholesterol 34 mg/dL (40-59); LDL Cholesterol 108 mg/dL (< 100); Triglycerides 105 mg/dL (< 150)
[2022-02-14] MEDS ORDERED: METF-370 PO (14:57)
[2022-02-14] MEDS ORDERED: INSLISPI SC (14:59)
[2022-02-14 16:56] VITALS: BP 140/63
[2022-02-14 22:00] VITALS: BP 148/81
[2022-02-14] MEDS: SODIUM CHLORIDE 0.9% 1,000 ML IV SCH (22:21)
[2022-02-14] MEDS: GABAPENTIN 300 MG CAP PO SCH (22:21)
[2022-02-14] MEDS: AMOXICILLIN/CLAVUL 875 MG TAB PO SCH (22:23)
[2022-02-15] MEDS ORDERED: ONDANSETRON HCL 4 MG/2 ML VIAL ONE (00:27)
[2022-02-15] MEDS: SODIUM CHLORIDE 0.9% 1,000 ML IV SCH ×2 (00:58→08:45)
[2022-02-15 05:00] VITALS: BP 141/72
[2022-02-15] MEDS: GABAPENTIN 300 MG CAP PO SCH ×2 (06:00→14:00)
[2022-02-15 09:00] VITALS: BP 109/65
[2022-02-15] MEDS ORDERED: FAMOTIDINE 20 MG TAB PO SCH (10:00)
[2022-02-15] MEDS: AMOXICILLIN/CLAVUL 875 MG TAB PO SCH (10:42)
[2022-02-15] MEDS ORDERED: SULF400T11 PO (11:29)
[2022-02-15 13:00] VITALS: BP 129/63
[2022-02-15 13:31] VITALS: BP 129/63
[2022-02-15 17:00] VITALS: BP 103/64
== END 2022-02-15 17:45 | disposition home health service (06) | DRG 464 ==
LOC: ER 03:27 → OVERFLOW 12:52 → WEST WING 14:57
PROVIDERS: ADMIT Hospitalist; ATTEND Hospitalist
PROC: 0HRMXK3 Replacement of Right Foot Skin with Nonautologous Tissue Substitute, Full Thickness, External Approach (ICD-10-PCS; principal; 2022-02-14 10:35)
DX: T87.89 Other complications of amputation stump (principal); L03.115 Cellulitis of right lower limb; E44.0 Moderate protein-calorie malnutrition; Z68.43 Body mass index [BMI] 50.0-59.9, adult; E11.628 Type 2 diabetes mellitus with other skin complications; Z20.822 Contact with and (suspected) exposure to COVID-19; Z89.421 Acquired absence of other right toe(s); Y82.8 Other medical devices associated with adverse incidents; Y92.89 Other specified places as the place of occurrence of the external cause
CPT/HCPCS: 36415; 71045; 80053; 80061; 81001; 83735; 84702; 85025; 85610; 85730; 87070; 87075; 87077; 87081; 87186; 87205; 93005; 96365; G0378; J0690; J0696; J1100; J2250; J2405; J2704